=== PATIENT | female | born 1995 | race Caucasian/White ===

== ENCOUNTER 2019-12-04 04:37 | Emergency (ER) | payer OTHER ==
[~2019-12-04] VITALS: Ht 170.2 cm; Wt 60.8 kg
[2019-12-04 04:43] VITALS: BP 122/66
--- NOTE | 2019-12-04 04:50 | NUR ---
PT SEATED UPRIGHT IN BED AWAITING EVAULATION. SAFETY MEASURES IN PLACE. WILL CONTINUE TO MONITOR.
[2019-12-04 04:51] VITALS: BP 122/66
--- NOTE | 2019-12-04 04:58 | NUR ---
ERMD AT BEDSIDE FOR MEDICAL EVALUATION
[2019-12-04] MEDS ORDERED: TETRACAINE HCL/PF 0.5% OPTH 4 ML BTL OP ONE (05:00)
--- NOTE | 2019-12-04 05:06 | NUR ---
VISUAL ACUITY FOLLOWS; BOTH 20/13, LT 20/13, RT 20/15 WITH NO CORRECTIVE LENSES
[2019-12-04] MEDS ORDERED: FLUORESCEIN OPTH STRIP 1 MG ONE (05:08)
[2019-12-04] MEDS ORDERED: FLUORESCEIN OPTH STRIP 1 MG OP ONE (05:10)
[2019-12-04] MEDS ORDERED: GENTAMICIN OP 0.3% 15 MG/5 ML BTL OP ONE (05:10)
[2019-12-04] MEDS ORDERED: IBUPROFEN 800 MG TAB PO ONE (05:10)
== END 2019-12-04 05:25 | disposition home or self-care (01) ==
LOC: MED 04:37
DX: S05.01XA Injury of conjunctiva and corneal abrasion without foreign body, right eye, initial encounter (principal); R03.0 Elevated blood-pressure reading, without diagnosis of hypertension; X58.XXXA Exposure to other specified factors, initial encounter; Y93.89 Activity, other specified; Y92.89 Other specified places as the place of occurrence of the external cause; Y99.8 Other external cause status
CPT/HCPCS: 99283